=== PATIENT | female | born 1950 | race Caucasian/White ===

== ENCOUNTER 2017-10-04 09:45 | Outpatient (RCR) | payer MEDICARE, OTHER ==
--- NOTE | 2017-09-06 11:12 | PT INITIAL EVALUATION ---
MEDICAL DIAGNOSIS: Dizziness, Vertigo, Lack of Coordination TREATMENT DIAGNOSIS: Dizziness, Vertigo, Lack of Coordination DATE OF ONSET: 09/06/17 SUBJECTIVE: Aline is a 66 year-old female presenting to physical therapy following a significant history of dizziness and vertigo. Pt reports that it comes and goes, but has gotten worse over the last month. Pt reports that it is usually worse in the mornings when she first wakes up, but also sometimes gets her in the afternoons. She doesn't notice it much when she lays down or sits up , but it is very unpredictable. Pt previously received treatment for dizziness, but saw minimal results and it reported that it went away on it's own. Pt has seen ENT as well as is having a hearing evaluation tomorrow. REHAB PROBLEM LIST: Impaired Bed Mobility Impaired Transfers Decreased Balance Decreased ADL's Decreased Mobility PREVIOUS MEDICAL HISTORY: See EMR, Cervical fusion OBJECTIVE: Pt has no resting nystagmus or dizziness upon examination. ROM: Pt has minimally limited cervical ROM with extension and rotation to the L without pain. Special Tests: Vertebral Artery Assessment (-) B, [place] Hallpike (-) B, Horizontal Canal testing (+) for nystagmus and dizziness to the R Mobility: Pt has no nystagmus with visual tracking or convergence. Gait: No significant gait discrepancies, stumbling or LOB Other Objective Findings: Pt reports that on average she is dizzy 2-3 hours a day recently. 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 Physical therapy is indicated to improve the above listed deficits as well as improve pt function with ADL's. Pt was treated with BBQ roll technique upon evaluation and reported no symptoms of dizziness following 3 cycles. Pt to follow up with PT if dizziness persists for further examination. Short Term Goals In 2 weeks pt will report no dizziness with ADL's for improved function. In 2 weeks pt will have no dizziness or nystagmus with positional changes, or with rolling over in bed for improved function with ADL's. Patient's Goals Decrease dizziness PLAN: Patient to be seen for Neuromuscular Re-ed Posture/Body mechanics Gait Trg/Balance Trg Home Exercise Program Therapeutic Activities 2x/Week for 2 Weeks If you have any questions, comments, or concerns about this report or plan, please contact me at . Thank you, Fartun Thao, PT, DPT, CLT MTDD
[~2017-10-04 09:45] MED LIST: ACE325 PO; AMLO-96 PO; AMLO-99 PO; AMOX500T10 PO; ASCO-188 PO; ASPI-715 PO; BENZ200C15 PO; BLOOD PRESSURE; CALC-521 PO; CALC-852 PO; CALC3.7S6 NS; CHOL100058 PO; CYC10 PO; DEXL30CA5 PO; DIA5 PO; DILSR120 PO; DOC100 PO; ESOM40CA42 PO; FLU45SYR25 IM ONLY; FLU60SYR30 IM ONLY; HYDR-2946 PO; HYDR-2966 PO; IBAN150T6 PO; LAMICTAL; LAMO100T56 PO; LAMO200T46 PO; LAMO5TB.2 PO; LEV500 PO; LID5T TOP; LOR5/325 PO; LOR75 PO; MAGN250T34 PO; MED FOR GERD; METH4TAB66 PO; METR-1 PO; MIR PO; MULT-820 PO; MULT1CAP59 PO; MULTI VIT; NAP250 PO; OMEG-11 PO; OMEP-125 PO; OSC600 PO; OXYIR PO; PANT40TA65 PO; PER PO; PNEI IJ; PNEU0.5D3 IM; QUE25 PO; QUET25TA30 PO; RANI-320 PO; RANI-324 PO; RANI-445 PO; SERAQUIL PO; SEROQUEL; TRA50 PO; [UNRECOGNIZED DRUG - OTHER] PO
--- NOTE | 2017-10-04 10:02 | PT PLAN OF CARE ---
Physician: William Gordon MD Patient is being seen: 2-3x/Week Therapist: Fartun Thao PT, DPT, CLT Medical Diagnosis: Dizziness, Vertigo, Lack of Coordination Treatment Diagnosis: Dizziness, Vertigo, Lack of Coordination Date of Onset: 09/06/17 Date of Initial Evaluation: 09/06/17 Date patient was last seen: 10/03/17 Number of treatments: 4 Number of cancellations/No shows: 0 INTERVENTIONS: Neuromuscular Re-ed Posture/Body mechanics Gait Trg/Balance Trg Home Exercise Program Therapeutic Activities GOALS: In 2 weeks pt will report no dizziness with ADL's for improved function. MET In 2 weeks pt will have no dizziness or nystagmus with positional changes, or with rolling over in bed for improved function with ADL's. MET PATIENT'S GOAL: Decrease dizziness Status of Patient's Goals: 2/2 Goals MET Patient Compliance: Excellent Prognosis: Good Reasons for continuing therapy: Aline is to discharge from physical therapy at this time secondary to completion of 2/2 functional goals. At the time of discharge Aline reported no dizziness with ADL's including activities that typically brought on symptoms. Pt is to continue with vestibular hypofunction exercises to maintain functional status if any dizziness is to return. Special Tests: Vertebral Artery Assessment (-) B, [place] Hallpike (-) B, Horizontal Canal testing (-) for nystagmus and dizziness Mobility: Pt has no nystagmus with visual tracking or convergence. Outcome Measures: Dizziness Handicap Inventory: 2100 If you have any questions or comments, please feel free to contact me at . Thank you, Fartun Thao PT, DPT, CLT [facility]
== END 2017-10-04 18:00 | disposition home or self-care (01) ==
LOC: PT 09:45
PROVIDERS: ATTEND Otolaryngology
DX: H81.02 Meniere's disease, left ear (principal); H82.3 Vertiginous syndromes in diseases classified elsewhere, bilateral; R27.9 Unspecified lack of coordination; Z98.1 Arthrodesis status
CPT/HCPCS: 97161

== ENCOUNTER 2017-11-16 08:20 | Emergency (ER) | payer MEDICARE, OTHER ==
[~2017-11-16] VITALS: Ht 167.6 cm; Wt 81.6 kg
[2017-11-16] MEDS ORDERED: CYAN500L6 (08:33)
--- NOTE | 2017-11-16 08:43 | ER Report ---
History and Physical Time Seen By MD: 08:42 Hx. of Stated Complaint: PT TRIPPED AND FELL ON SAT, INJURING CHEST. HURTS TO COUGH,, LAUGH HPI/ROS CHIEF COMPLAINT: Bilateral rib pain HISTORY OF PRESENT ILLNESS: 66-year-old female had a mechanical fall tripping over a laundry basket fell forward arms or tucked in underneath her she's having bilateral rib pain or head or neck trauma no loss of consciousness no wrist pain or discomfort has had rib fractures the past she doesn't feel that they're fractured that they may be subtly fractured he's having no shortness of breath no exertional dyspnea no headaches no neck discomfort no abdominal pain or tenderness bilateral rib discomfort under both breasts otherwise unremarkable no additional complaints noted REVIEW OF SYSTEMS: Respiratory: No cough, no dyspnea. Cardiovascular: No chest pain, no palpitations. Gastrointestinal: No vomiting, no abdominal pain. Musculoskeletal: No back pain. Remainder of the 14 system rev: Yes Allergies: Coded Allergies: bacitracin (Verified Allergy, Intermediate, RASH, 11/16/17) gramicidin D (Verified Allergy, Intermediate, RASH, 11/16/17) neomycin (Verified Allergy, Intermediate, RASH, 11/16/17) polymyxin B (Verified Allergy, Intermediate, RASH, 11/16/17) codeine (Verified Adverse Reaction, Mild, HALLUCINATIONS, 11/16/17) morphine (Verified Adverse Reaction, Mild, "DOESN'T WORK", 11/16/17) hydromorphone HCl (Verified Adverse Reaction, Unknown, 11/16/17) MAKES HER PARANOID TO EXTREMES Home Meds Active Scripts Hydrochlorothiazide (HYDROCHLOROTHIAZIDE) 25 Mg Tablet, 1 TAB PO QDAY, #30 TAB 11 Refills Prov:MARIVEL HIGHTOWER MD 08/02/17 Ranitidine Hcl (RANITIDINE HCL) 300 Mg Tablet, 1 TAB PO QDAY, #60 TAB 6 Refills Prov:MARIVEL HIGHTOWER MD 06/23/17 Pantoprazole Sodium (PANTOPRAZOLE SODIUM) 40 Mg Tablet.dr, 1 TAB PO QAM, #30 TAB.SR 4 Refills Prov:HI PEREZ MD 06/23/16 Reported Medications Cyanocobalamin (Vitamin B-12) (B-12) 500 Mcg Tab.rapdis 11/16/17 Amlodipine Besylate (AMLODIPINE BESYLATE) 5 Mg Tablet, 1 TAB PO QDAY, TAB 08/02/17 Cholecalciferol (Vitamin D3) (VITAMIN D) 1,000 Unit Capsule, 1 CAP PO QDAY, CAPSULE 08/07/15 Ascorbic Acid (VITAMIN C) 500 Mg Tab.chew, 1 TAB PO QDAY, TAB.CHEW 08/07/15 Magnesium Oxide (MAGNESIUM) 250 Mg Tablet, 1 TAB PO QDAY 04/16/15 Lamotrigine (LAMICTAL) 100 Mg Tablet, 5 TAB PO QDAY 04/16/15 Multivitamin (MULTIVITAMINS) 1 Each Tablet, 1 TAB PO DAILY 05/13/14 Quetiapine Fumarate (SEROQUEL) 25 Mg Tablet, 3 TAB PO HS 05/13/14 Calcium Carbonate/Vitamin D3 (CALCIUM + VITAMIN D TABLET) 1 Each Tablet, 1 EACH PO BID 05/13/14 Reviewed Nurses Notes: Yes Old Medical Records Reviewed: Yes Hx Smoking: No (quit 9 years ago) Smoking Status: Former Smoker Exposure to Second Hand Smoke?: Yes Hx Substance Use Disorder: No Hx Alcohol Use: No Constitutional Vital Sign - Last 24 Hours 11/16/17 08:26 Temp 97.8 Pulse 91 Resp 20 B/P (MAP) 156/73 Pulse Ox 92 O2 Delivery Room Air Physical Exam General Appearance: The patient is alert, has no immediate need for airway protection and no current signs of toxicity. [ ] Eyes: Pupils equal and round no injection. Respiratory: Chest is non tender, lungs are clear to auscultation. Cardiac: regular rate and rhythm [ ] Gastrointestinal: Abdomen is soft and non tender, no masses, bowel sounds normal. Musculoskeletal: Bilateral anterior rib pain no palpable crepitus or tenderness breath sounds Neck is supple and non tender. Extremities have full range of motion and are non tender. Skin: No rashes or lesions. [ ] DIFFERENTIAL DIAGNOSIS: After history and physical exam differential diagnosis was considered for rib fracture versus contusion Medical Decision Making ED Course/Re-evaluation ED Course ED clinical course medical decision making [age] female mechanical fall several days prior to presentation patient had x-rays performed shows old rib fractures nothing acute old compression fracture of indeterminate age the finger arcual advise anti-inflammatories and Tylenol for pain follow as needed Decision to Disposition Date: Nov 16, 2017 Decision to Disposition Time: 09:43 Depart Departure Latest Vital Signs Vital Signs Date Time Temp Pulse Resp B/P (MAP) Pulse Ox O2 Delivery O2 Flow Rate FiO2 11/16/17 08:26 97.8 91 20 156/73 92 Room Air Impression: Primary Impression: Rib contusion Condition: Improved Disposition: HOME OR SELF-CARE Referrals: ROGELIO HOOD DNP, [facility] (PCP) 5 Days Patient Instructions: Rib Contusion (ED) GUDELIA NICHOLAS MD Nov 16, 2017 08:43
--- NOTE | 2017-11-16 09:22 | RADIOLOGY IMAGING REPORT ---
FACILITY: [facility] PATIENT NAME: Aline Guo : 1950 MR: [id number] V: [id number] EXAM DATE: ORDERING PHYSICIAN: GUDELIA NICHOLAS TECHNOLOGIST: Location: [facility] - [place] Patient: Aline Guo : 1950 Visit/Account:[id number] Date of Sevice: 11/16/2017 Exam type: BILATERAL RIBS History: trauma Comparison: AP chest November 19, 2011 Findings: There are multiple old right-sided rib fractures as seen on the prior chest. A limited single obliqu e views of both ribs demonstrate no gross evidence of acute fractures.. This pleural thickening over the right lateral thorax. No gross evidence of acute pulmonary consolidation or pneumothorax. The cardiac silhouette is mildly enlarged. There is moderate ectasia the thoracic aorta. There are post surgical changes lower cervical spine. Oblique views are suggestion of compression fractures in the lower thoracic/upper lumbar spine IMPRESSION: 1. Limited single oblique views of both ribs reveal no gross evidence of acute fractures Old right-sided rib fractures and pleural thickening over the right lateral thorax Multiple compression fractures of the lower thoracic/upper lumbar spine are suspected on the oblique views of indeterminate age Report Dictated By: Shelly Fournier MD at 11/16/2017 9:13 AM Report E-Signed By: Shelly Fournier MD at 11/16/2017 9:17 AM WSN:[email or web address]
--- NOTE | 2017-11-16 09:25 | RADIOLOGY IMAGING REPORT ---
FACILITY: [facility] - [place] PATIENT NAME: Aline Guo : 1950 MR: [id number] V: [id number] EXAM DATE: ORDERING PHYSICIAN: GUDELIA NICHOLAS TECHNOLOGIST: Location: [facility] Patient: Aline Guo : 1950 Visit/Account:[id number] Date of Sevice: 11/16/2017 Exam type: CHEST PA AND LAT History: trauma Comparison: November 29, 2011. Findings: Multiple old right-sided rib fractures and pleural thickening seen over the right lateral thorax. Th ere is no evidence of acute pulmonary consolidation, pleural effusion or pneumothorax. The cardiac s ilhouette is mildly enlarged. There are postsurgical changes of the lower cervical spine. Mild compression fractures of the lower thoracic and upper lumbar spine compression fracture at L2 wa s present on a prior CT lumbar spine dated September 24, 2011 IMPRESSION: 1. Multiple old right-sided rib fractures and old fracture of L2 present on a prior CT from September 24, 2011 Suggestion of mild compression fractures in the lower thoracic spine of indeterminate age Chronic pleural thickening over the right lateral thorax Report Dictated By: Shelly Fournier MD at 11/16/2017 9:17 AM Report E-Signed By: Shelly Fournier MD at 11/16/2017 9:20 AM WSN:[email or web address]
[2017-11-16 09:48] VITALS: BP 137/84
== END 2017-11-16 10:02 | disposition home or self-care (01) ==
LOC: ER 08:27
DX: S20.219A Contusion of unspecified front wall of thorax, initial encounter (principal); W01.0XXA Fall on same level from slipping, tripping and stumbling without subsequent striking against object, initial encounter
CPT/HCPCS: 71046; 71111; 99283

== ENCOUNTER 2017-12-06 09:36 | Emergency (ER) | payer MEDICARE, OTHER ==
[~2017-12-06 09:36] MED LIST changes: -CALC500T6 PO; -CEPH500T7 PO; -HYDR-385 PO; -KET10 PO; -MAGN500C10 PO
--- NOTE | 2017-12-06 09:54 | ER Report ---
History and Physical Time Seen By MD: 09:53 Hx. of Stated Complaint: pt presents via ambulance weith hx of falling after tripping, injuring l wrist. Presents with forearm in CYNTHIA splint HPI/ROS Tripped over a rug and landed on her left wrist. Now with pain and deformity. No other injuries or complaints. Remainder of the 14 system rev: Yes Allergies: Coded Allergies: bacitracin (Verified Allergy, Intermediate, RASH, 12/06/17) gramicidin D (Verified Allergy, Intermediate, RASH, 12/06/17) neomycin (Verified Allergy, Intermediate, RASH, 12/06/17) polymyxin B (Verified Allergy, Intermediate, RASH, 12/06/17) codeine (Verified Adverse Reaction, Mild, HALLUCINATIONS, 12/06/17) morphine (Verified Adverse Reaction, Mild, "DOESN'T WORK", 12/06/17) hydromorphone HCl (Verified Adverse Reaction, Unknown, 12/06/17) MAKES HER PARANOID TO EXTREMES Home Meds Active Scripts Ketorolac Tromethamine (KETOROLAC TROMETHAMINE) 10 Mg Tab, 10 MG PO Q6H Y for PAIN, #12 TAB 0 Refills Prov:PATRICIA FRANCIS MD 12/06/17 Amlodipine Besylate (AMLODIPINE BESYLATE) 5 Mg Tablet, 1 TAB PO QDAY, #90 TAB 1 Refill Prov:MARIVEL HIGHTOWER MD 11/22/17 Hydrochlorothiazide (HYDROCHLOROTHIAZIDE) 25 Mg Tablet, 1 TAB PO QDAY, #30 TAB 11 Refills Prov:MARIVEL HIGHTOWER MD 08/02/17 Ranitidine Hcl (RANITIDINE HCL) 300 Mg Tablet, 1 TAB PO QDAY, #60 TAB 6 Refills Prov:MARIVEL HIGHTOWER MD 06/23/17 Pantoprazole Sodium (PANTOPRAZOLE SODIUM) 40 Mg Tablet.dr, 1 TAB PO QAM, #30 TAB.SR 4 Refills Prov:HI PEREZ MD 06/23/16 Reported Medications Cyanocobalamin (Vitamin B-12) (B-12) 500 Mcg Tab.rapdis 11/16/17 Cholecalciferol (Vitamin D3) (VITAMIN D) 1,000 Unit Capsule, 1 CAP PO QDAY, CAPSULE 08/07/15 Ascorbic Acid (VITAMIN C) 500 Mg Tab.chew, 1 TAB PO QDAY, TAB.CHEW 08/07/15 Magnesium Oxide (MAGNESIUM) 250 Mg Tablet, 1 TAB PO QDAY 04/16/15 Lamotrigine (LAMICTAL) 100 Mg Tablet, 5 TAB PO QDAY 04/16/15 Multivitamin (MULTIVITAMINS) 1 Each Tablet, 1 TAB PO DAILY 05/13/14 Quetiapine Fumarate (SEROQUEL) 25 Mg Tablet, 3 TAB PO HS 05/13/14 Calcium Carbonate/Vitamin D3 (CALCIUM + VITAMIN D TABLET) 1 Each Tablet, 1 EACH PO BID 05/13/14 Reviewed Nurses Notes: Yes Old Medical Records Reviewed: Yes Hx Smoking: No (quit 9 years ago) Smoking Status: Former Smoker Exposure to Second Hand Smoke?: Yes Hx Substance Use Disorder: No Hx Alcohol Use: No Constitutional Vital Sign - Last 24 Hours 12/06/17 12/06/17 12/06/17 12/06/17 09:45 09:53 10:06 10:36 Pulse 88 88 Resp 20 B/P (MAP) 151/92 (111) Pulse Ox 88 95 12/06/17 12/06/17 12/06/17 12/06/17 10:47 11:00 11:06 11:11 Pulse 80 ??? B/P (MAP) 158/72 (100) 161/88 (112) Pulse Ox 93 96 12/06/17 12/06/17 12/06/17 12/06/17 11:13 11:26 11:30 11:41 Pulse 89 91 Resp 27 13 B/P (MAP) 147/109 (122) 159/92 (114) Pulse Ox 86 93 12/06/17 12/06/17 12/06/17 12/06/17 11:45 11:50 12:00 12:15 Pulse 82 Resp 8 B/P (MAP) 135/92 (106) 140/90 (107) 144/95 (111) Pulse Ox 93 12/06/17 12/06/17 12/06/17 12/06/17 12:20 12:30 12:45 12:50 Pulse 91 81 Resp 28 9 B/P (MAP) 147/91 (109) 148/108 (121) Pulse Ox 93 12/06/17 13:00 B/P (MAP) 127/94 (105) Physical Exam General Appearance: The patient is alert, has no immediate need for airway protection and no current signs of toxicity. Eyes: Pupils equal and round no injection. Respiratory: Chest is non tender, lungs are clear to auscultation. Cardiac: regular rate and rhythm Neck: Neck is supple and non tender. Extremities: Obvious deformity to the left wrist. N/V in tact. No lacerations/ abrasions. TTP of the right knee. No obvious deformity, no effusions, no laxity Skin: Abrasion to right knee. DIFFERENTIAL DIAGNOSIS: After history and physical exam differential diagnosis was considered for fracture of wrist, tibial plateau fracture. N/V injury Medical Decision Making EKG/Imaging EKG Interpretation X-ray: left wrist was obtained. I viewed the images myself on the PACS system. My interpretation of the images is: comminuted, intra-articular fracture of the left distal radius. The radiologist interpretation had no clinically significant variation from this interpretation. X-ray: right knee was obtained. I viewed the images myself on the PACS system. My interpretation of the images is: no fracture/dislocation/effusion. The radiologist interpretation had no clinically significant variation from this interpretation. ED Course/Re-evaluation ED Course Comminuted, intra-articular fracture of the left distal radius. Hemodynamically in tact both before and after reduction. Reduction performed to improve angulation and displacement of the distal radius. Still impacted after reduction but improved alignment. Placed in a thumb spica splint. Spoke with Dr. Strange who will see the patient in his office for follow up tomorrow. Procedure Procedure: Dislocation reduction: A hematoma block using 10ml of 1% lidocaine was performed by me. The left distal radius was reduced under guidance of the c-arm without complications. Post reduction the patient's neurovascular exam is normal. Post reduction x-ray demonstrates improvement of the distal radius closer to the anatomic position. The procedure was performed by myself. Decision to Disposition Date: Dec 06, 2017 Decision to Disposition Time: 17:30 Depart Departure Latest Vital Signs Vital Signs Date Time Temp Pulse Resp B/P (MAP) Pulse Ox O2 Delivery O2 Flow Rate FiO2 12/06/17 13:00 127/94 (105) 12/06/17 12:50 81 9 93 Impression: Primary Impression: Distal radial fracture Additional Impression: Knee contusion Condition: Improved Disposition: HOME OR SELF-CARE Referrals: MARIVEL HIGHTOWER MD (PCP) STRANGE,JEREMIAS MD New Scripts Ketorolac Tromethamine (KETOROLAC TROMETHAMINE) 10 Mg Tab 10 MG PO Q6H Y for PAIN, #12 TAB 0 Refills Prov: PATRICIA FRANCIS MD 12/06/17 Patient Instructions: Wrist Fracture in Adults (ED) Additional Instructions: Call Dr. Strange's office today to be scheduled for an appointment in his clinic tomorrow Problem Qualifiers Primary Impression: Distal radial fracture Encounter type: initial encounter Fracture type: closed Fracture morphology : other intra-articular Laterality: left Qualified Codes: S52.572A - Other intraarticular fracture of lower end of left radius, initial encounter for closed fracture Additional Impression: Knee contusion Encounter type: initial encounter Laterality: right Qualified Codes: S80.01XA - Contusion of right knee, initial encounter PATRICIA FRANCIS MD Dec 06, 2017 09:54
--- NOTE | 2017-12-06 10:39 | RADIOLOGY IMAGING REPORT ---
FACILITY: [facility] PATIENT NAME: Aline Guo : 1950 MR: [id number] V: [id number] EXAM DATE: ORDERING PHYSICIAN: PATRICIA FRANCIS TECHNOLOGIST: Location: [facility] [place] Patient: Aline Guo : 1950 Visit/Account:[id number] Date of Sevice: 12/06/2017 Technique: WRIST LEFT MIN 3 VIEW HISTORY: Fall Comparison studies: None FINDINGS: Noted is an acute, comminuted, impacted intra-articular fracture involving the distal left radial metadiaphysis. There is fracture fragment foreshortening as well as dorsal angulation of the distal fracture fragment apex. Previous ulna styloid avulsion injury or incomplete secondary ossific ation centers are noted. Soft tissue swelling surrounds the fracture site. IMPRESSION: 1. Acute, impacted, intra-articular comminuted fracture involving the distal left radial metadiaphys is as described above. Report Dictated By: Kobe Brewster DO at 12/06/2017 10:33 AM Report E-Signed By: Kobe Brewster DO at 12/06/2017 10:36 AM WSN:[email or web address]
[2017-12-06] MEDS ORDERED: KETOROLAC 30 MG/ML VIAL IVP ONE (10:50)
[2017-12-06] MEDS ORDERED: KETOROLAC 30 MG/ML VIAL IM ONE (11:00)
[2017-12-06] MEDS ORDERED: fentaNYL CITR 100 MCG/2 ML AMP IVP ONE ×2 (11:25→11:35)
[2017-12-06 13:00] VITALS: BP 127/94
[2017-12-06] MEDS ORDERED: KET10 PO (13:03)
--- NOTE | 2017-12-06 13:13 | RADIOLOGY IMAGING REPORT ---
[facility] PATIENT NAME: Aline Guo : 1950 MR: [id number] V: [id number] EXAM DATE: ORDERING PHYSICIAN: PATRICIA FRANCIS TECHNOLOGIST: Location: [facility] - [place] Patient: Aline Guo : 1950 Visit/Account:[id number] Date of Sevice: 12/06/2017 Technique: KNEE LIMITED RIGHT HISTORY: TRAUMA Comparison studies: None FINDINGS: There is no acute fracture. Mild to moderate degenerative changes are noted within the rig ht knee. Present is a moderate to large suprapatellar joint effusion. IMPRESSION: 1. No acute osseous process. 2. Moderate to large suprapatellar joint effusion. Report Dictated By: Kobe Brewster DO at 12/06/2017 1:08 PM Report E-Signed By: Kobe Brewster DO at 12/06/2017 1:09 PM WSN:[email or web address]
--- NOTE | 2017-12-06 13:17 | RADIOLOGY IMAGING REPORT ---
FACILITY: [facility] - [place] PATIENT NAME: Aline Guo : 1950 MR: [id number] V: [id number] EXAM DATE: ORDERING PHYSICIAN: PATRICIA FRANCIS TECHNOLOGIST: Location: [facility] [place] Patient: Aline Guo : 1950 Visit/Account:[id number] Date of Sevice: 12/06/2017 Technique: C-ARM FLUORO >1 HR HISTORY: TRAUMA Comparison studies: Left wrist radiographs 12/06/2017 FINDINGS: Cast overlies the left wrist. Redemonstrated is an acute, comminuted, intra-articular frac ture of the distal left radial metadiaphysis. Chronic findings are again noted adjacent to the ulna styloid. Fluoroscopy time: 193.8 seconds IMPRESSION: 1. Intraoperative fluoroscopic radiograph as described above. Please see operative report for furth er details. Report Dictated By: Kobe Brewster DO at 12/06/2017 1:09 PM Report E-Signed By: Kobe Brewster DO at 12/06/2017 1:11 PM WSN:[email or web address]
--- NOTE | 2017-12-06 13:22 | RADIOLOGY IMAGING REPORT ---
FAC[place]: [facility] [place] PATIENT NAME: Aline Guo : 1950 MR: [id number] V: [id number] EXAM DATE: ORDERING PHYSICIAN: PATRICIA FRANCIS TECHNOLOGIST: Location: [facility] [place] Patient: Aline Guo : 1950 Visit/Account:[id number] Date of Sevice: 12/06/2017 Technique: WRIST LEFT 2 VIEW HISTORY: post reduction Comparison studies: Left wrist radiographs December 06, 2017 FINDINGS: Cast overlies the left wrist. Redemonstrated is a comminuted, intra-articular fracture inv olving the distal radial metadiaphysis. There is slight improvement of the lateral angulation of the distal fracture fragment apex. Chronic changes are again noted near the ulna styloid. Soft tissue swelling surrounds the fracture site. IMPRESSION: 1. Post reduction radiographs as described above. Report Dictated By: Kobe Brewster DO at 12/06/2017 1:11 PM Report E-Signed By: Kobe Brewster DO at 12/06/2017 1:17 PM WSN:[email or web address]
[2017-12-09] MEDS ORDERED: MAGN500C10 PO (10:38)
[2017-12-09] MEDS ORDERED: CALC500T6 PO (10:38)
[2017-12-09] MEDS ORDERED: HYDR-385 PO (15:50)
[2017-12-09] MEDS ORDERED: CEPH500T7 PO (15:50)
== END 2017-12-06 13:10 | disposition home or self-care (01) ==
LOC: ER 09:47
DX: S52.572A Other intraarticular fracture of lower end of left radius, initial encounter for closed fracture (principal); S80.01XA Contusion of right knee, initial encounter
CPT/HCPCS: 25605; 73100; 73110; 73560; 76001; 96372; 96374; 99284; A4565; J1885; J3010

== ENCOUNTER → 2017-12-06 | Outpatient (CLI) | payer OTHER ==
[~2017-12-06] MED LIST changes: +CALC500T6 PO; +CEPH500T7 PO; +CYAN500L6; +HYDR-385 PO; +KET10 PO; +MAGN500C10 PO
== END ==
LOC: AMB 09:14
PROVIDERS: ATTEND Nurse Practitioner
DX: M25.532 Pain in left wrist (principal); M21.932 Unspecified acquired deformity of left forearm; W10.9XXA Fall (on) (from) unspecified stairs and steps, initial encounter
CPT/HCPCS: A0425; A0427

== ENCOUNTER → 2017-12-08 | Outpatient (CLI) | payer OTHER ==
[~2017-12-08] MED LIST changes: +CALC500T6 PO; +CEPH500T7 PO; +HYDR-385 PO; +KET10 PO; +MAGN500C10 PO
--- NOTE | 2017-12-08 17:54 | EKG ---
FACILITY: [facility] PATIENT NAME: CYNTHIA CONWAY : [id number] MR: [id number] V: [id number] EXAM DATE: ORDERING PHYSICIAN: HI HOLBROOK TECHNOLOGIST: Manuel Menon Reason : Blood Pressure : / mmHG Vent. Rate : 080 BPM Atrial Rate : 080 BPM P-R Int : 166 ms QRS Dur : 088 ms QT Int : 408 ms P-R-T Axes : 023 -24 -47 degrees QTc Int : 470 ms Normal sinus rhythm Minimal voltage criteria for LVH, may be normal variant T wave abnormality, consider inferior ischemia T wave abnormality, consider anterolateral ischemia Prolonged QT Abnormal ECG No previous ECGs available Confirmed by HI ARVIZU ([id number]) on 12/09/2017 7:22:12 AM Referred By: Confirmed By:HI ARVIZU
== END ==
LOC: LAB 17:16
PROVIDERS: ATTEND Anesthesiology
DX: Z01.812 Encounter for preprocedural laboratory examination (principal); Z01.810 Encounter for preprocedural cardiovascular examination; S62.292A Other fracture of first metacarpal bone, left hand, initial encounter for closed fracture; R94.31 Abnormal electrocardiogram [ECG] [EKG]
CPT/HCPCS: 36415; 82040; 82247; 82310; 82374; 82435; 82565; 82947; 84075; 84132; 84155; 84295; 84450; 84460; 84520; 93005

== ENCOUNTER → 2017-12-08 | Outpatient (CLI) | payer OTHER ==
[~2017-12-08] MED LIST changes: +DEXAMETHASONE SOD PHOS 10MG/ML ONE; +KETAMINE HCL 200 MG/20 ML MDV ONE; +LIDOCAINE 2% IV 100 MG/5ML SYR ONE; +PROPOFOL EMUL(*) 10MG/ML 20 ML 20 ML ONE; +PROPOFOL EMUL(*) 10MG/ML 20 ML 60 ML ONE; +fentaNYL CITR 100 MCG/2 ML AMP ONE; +fentaNYL CITR 250 MCG/5 ML AMP ONE
--- NOTE | 2017-12-08 17:47 | RADIOLOGY IMAGING REPORT ---
[place] [facility] [place] Aline Guo : 1950 MR: [id number] V: [id number] EXAM DATE: ORDERING PHYSICIAN: TASIA NYE TECHNOLOGIST: Location: [facility] - [place], [place] Patient: Aline Guo : 1950 Visit/Account:[id number] Date of Sevice: 12/08/2017 CT of the left wrist Indication: Distal radius fracture. Comparison: Plain films December 06, 2017 are reviewed. Technique: Axial CT images were obtained through the right wrist. Reformatted coronal and sagittal im ages were reviewed. One of the following dose optimization techniques was utilized in the performance of this exam: Autom ated exposure control; adjustment of the mA and/or kV according to the patient's size; or use of an i terative reconstruction technique. Specific details can be referenced in the facility's radiology C T exam operational policy. Findings: There is a thumb sided fiberglass splint in place. There is a comminuted intra-articular fracture involving the distal left radial metaphysis. There is a transverse fracture line extending from the volar cortex to the distal cortex which extends into th e distal radioulnar joint. There are longitudinal fracture lines which extend to the radiocarpal join t at the level of the lunate fossa. There is focal depression at the articular surface dorsally at th e level of the lunate fossa. There is an area of linear lucency and slight impaction involving the ad jacent lunate which is suggestive of a subtle lunate impaction fracture. On the sagittal reconstructe d images, there is dorsal displacement of the dorsal sided fragments. There is also a volar sided fra cture fragment displaced slightly volarly. The dorsal displacement results in a fracture gap at the a rticular surface which measures up to 4 mm. These findings may be superimposed on an old healed fract ure deformity. There is some widening of the distal radioulnar joint space. No acute ulnar styloid fracture seen. Th ere are 2 well-corticated ossifications which may be sequela of old ulnar sided wrist trauma. Correla te clinically. Slight widening of the scapholunate joint suggesting underlying ligamentous instability. Changes of o steoarthritis are seen at the triscaphe joint and the first carpal metacarpal joint as well as the aron notriquetral joint. Subchondral cyst formation noted at multiple joint spaces. There is soft tissue edema about the wrist which is mild in severity. IMPRESSION: 1. Comminuted intra-articular fracture involving the distal left radial metaphysis with fracture line extension into the distal radioulnar joint and into the radiocarpal joint. 2. Focal depression at the articular surface of the lunate fossa. There is a lucency with slight impa ction involving the adjacent lunate may reflect an acute lunate impaction type fracture. 3. Dorsal displacement of the distal radius fracture fragments results in a fracture gap at the artic ular surface measuring 4 mm. 4. Osteoarthritis. 5. Soft tissue swelling. Report Dictated By: Nba Pate at 12/08/2017 5:34 PM Report E-Signed By: Nba Pate at 12/08/2017 5:43 PM WSN:[id number]
== END ==
LOC: CT 16:35
PROVIDERS: ATTEND Orthopaedic Surgery Hand Surgery
DX: S62.102A Fracture of unspecified carpal bone, left wrist, initial encounter for closed fracture (principal); M19.032 Primary osteoarthritis, left wrist; M25.432 Effusion, left wrist

== ENCOUNTER → 2017-12-09 | Day surgery (SDC) | payer OTHER ==
[~2017-12-09] VITALS: Ht 168.9 cm; Wt 82.1 kg
[2017-12-09] VITALS (7 sets, daily range): BP systolic 120–155; BP diastolic 74–93
[~2017-12-09] MED LIST changes: +APAP/HYDROCODONE 325/5 TAB ONE; +BACITRACIN OINT 15 GM TUBE TP ONE; +CELECOXIB 200 MG CAP PO ONE; -DEXAMETHASONE SOD PHOS 10MG/ML ONE; -KETAMINE HCL 200 MG/20 ML MDV ONE; -LIDOCAINE 2% IV 100 MG/5ML SYR ONE; +LIDOCAINE/SOD BICARB 8.4% SYR ID ONE; +MIDAZOLAM 2 MG/2 ML VIAL IVP PRN; +NORMOSOL R SOLN(*) 1000 ML BAG 1,000 ML IV PRN; -PROPOFOL EMUL(*) 10MG/ML 20 ML 20 ML ONE; -PROPOFOL EMUL(*) 10MG/ML 20 ML 60 ML ONE; +ROPIVACAINE 0.2% 20 ML VIAL ONE; +SCOPOLAMINE 1.5 MG PATCH TD ONE; +ceFAZolin(*) 2GM/D5W 50ML 50 ML IVPB ONE; -fentaNYL CITR 250 MCG/5 ML AMP ONE
--- NOTE | 2017-12-09 20:31 | OPERATIVE REPORT 1 ---
EVENT DATE: December 09, 2017 SURGEON: Jorge L Vegas MD ANESTHESIOLOGIST: Aleksandar Diana MD ANESTHESIA: General. [employer] AND SERVICER: DERRICK Sosa PREOPERATIVE DIAGNOSIS Comminuted intra-articular, multi-part left distal radius fracture with significant impaction and shortening in presence of prior distal radius facture same side (remote). POSTOPERATIVE DIAGNOSIS Comminuted intra-articular, multi-part left distal radius fracture with significant impaction and shortening in presence of prior distal radius facture same side (remote) with degree of comminution and bone stalk making open reduction and internal fixation with volar plating inappropriate. PROCEDURE PERFORMED Left distal radius open reduction and internal fixation using a spanning bridge plate, relying on ligamentotaxis for reduction. ESTIMATED BLOOD LOSS Minimal. INTRAVENOUS FLUIDS 600 mL TOURNIQUET TIME 35 minutes SPECIMENS No specimens. COMPLICATIONS No complications. IMPLANTS Synthes spanning bridge plate. SUMMARY OF PROCEDURE The patient was brought into the operating room and placed on the OR table in the supine position. After obtaining adequate general anesthesia, the left upper extremity was prepped and draped in the usual sterile fashion. The limb was exsanguinated, and the tourniquet was inflated to 250 mmHg. A small incision was made over the dorsoradial aspect of the index metacarpal and deepened through skin and subcutaneous tissue by blunt spreading to move the radial sensory nerve branches out of the way. The periosteum was incised and the fascia exposed. A [place] was used to gradually pass the instrument proximally over the top of the capsule and under the ECRL and ECRB. I then laid the plate on the patient's arm to gauge the distance for the proximal piece and marked it proximally, at which point we made another incision on the dorsoradial aspect of the radius, deepened once again through skin and subcutaneous tissue. The muscular bellies of the ECRL and ECRB were elevated, and I bluntly spread underneath them to identify the radial shaft. The periosteum was not incised here. I just freed it up with an elevator. We then passed the plate from distal to proximal, secured the middle screw with a nonlocking screw distally in the index metacarpal, placed it under significant traction, aligned it proximally, and then placed two locking screws distally. Traction was then held to maintain a reduction with ligamentotaxis, and I placed a single screw proximally and checked the reduction. It was actually surprisingly good. The radial tilt was at zero or slightly volar which was outstanding, and the radial angle was actually restored quite nicely with adequate inclination. I was planning on placing K-wires, but given the anatomic nature of the reduction, albeit with slight shortening, I felt that this was more than adequate, and K-wires would induce an additional risk of infection. Consequently, no wires were used. The remainder of the screw holes proximally were filled with locking screws, placing three distal and three proximal. She was then given a dry, sterile dressing with prior closure of skin with nylon, having injected local anesthetic for postoperative pain control. She was transferred to the recovery area in stable condition. TRISTEN
== END ==
LOC: OR 08:00
PROVIDERS: ATTEND Orthopaedic Surgery Hand Surgery
DX: S52.572A Other intraarticular fracture of lower end of left radius, initial encounter for closed fracture (principal)
CPT/HCPCS: 25609; A4565; C1713; J1100; J2001; J2704; J2795; J3010; J3490; J7030; J0690

== ENCOUNTER → 2018-02-24 | Outpatient (CLI) | payer OTHER ==
[~2018-02-24] MED LIST changes: -APAP/HYDROCODONE 325/5 TAB ONE; -BACITRACIN OINT 15 GM TUBE TP ONE; -CELECOXIB 200 MG CAP PO ONE; -LIDOCAINE/SOD BICARB 8.4% SYR ID ONE; -MIDAZOLAM 2 MG/2 ML VIAL IVP PRN; -NORMOSOL R SOLN(*) 1000 ML BAG 1,000 ML IV PRN; -RANI-324 PO; +RANI-366 PO; -ROPIVACAINE 0.2% 20 ML VIAL ONE; -SCOPOLAMINE 1.5 MG PATCH TD ONE; -ceFAZolin(*) 2GM/D5W 50ML 50 ML IVPB ONE; -fentaNYL CITR 100 MCG/2 ML AMP ONE
== END ==
LOC: LAB 12:50
PROVIDERS: ATTEND Anesthesiology
DX: Z01.812 Encounter for preprocedural laboratory examination (principal); Z47.2 Encounter for removal of internal fixation device
CPT/HCPCS: 36415; 82040; 82247; 82310; 82374; 82435; 82565; 82947; 84075; 84132; 84155; 84295; 84450; 84460; 84520

== ENCOUNTER → 2018-06-23 | Outpatient (CLI) | payer OTHER ==
[~2018-06-23] MED LIST changes: +AMLO-111 PO; +AMLO-113 PO; -AMLO-96 PO; -AMLO-99 PO
--- NOTE | 2018-06-23 08:51 | EKG ---
FACILITY: [facility] - [place] PATIENT NAME: CYNTHIA CONWAY : [id number] MR: [id number] V: [id number] EXAM DATE: ORDERING PHYSICIAN: HI HOLBROOK TECHNOLOGIST: LD Test Reason : PRE OP Blood Pressure : / mmHG Vent. Rate : 069 BPM Atrial Rate : 069 BPM P-R Int : 172 ms QRS Dur : 094 ms QT Int : 446 ms P-R-T Axes : 033 -34 -32 degrees QTc Int : 477 ms Normal sinus rhythm Left axis deviation T wave abnormality, consider anterolateral ischemia Prolonged QT Abnormal ECG When compared with ECG of 08-DEC-2017 17:41, No significant change was found Confirmed by CARLYLE STRINGER ([id number]) on 06/23/2018 1:38:58 PM Referred By: SHERON Confirmed By:CARLYLE STRINGER
== END ==
LOC: LAB 07:45
PROVIDERS: ATTEND Anesthesiology
DX: Z01.810 Encounter for preprocedural cardiovascular examination (principal); M25.532 Pain in left wrist; M25.832 Other specified joint disorders, left wrist; S63.591A Other specified sprain of right wrist, initial encounter; E11.9 Type 2 diabetes mellitus without complications; E07.9 Disorder of thyroid, unspecified
CPT/HCPCS: 36415; 82040; 82247; 82310; 82374; 82435; 82565; 82947; 84075; 84132; 84155; 84295; 84450; 84460; 84520; 93005